=== PATIENT | male | born 1995 | race African-American/Black ===

== ENCOUNTER 2018-06-03 07:24 | Emergency (ER) | payer SELFPAY, OTHER ==
[2018-06-03] MEDS: HYDROCODONE/APAP (10/325) TAB PO (09:19)
== END 2018-06-03 09:42 | disposition home or self-care (01) ==
LOC: FTE 07:24
DX: K08.89 Other specified disorders of teeth and supporting structures (principal)
CPT/HCPCS: 99284